=== PATIENT | male | born 1990 | race Caucasian/White ===

== ENCOUNTER 2018-05-08 19:05 | Emergency (ER) | payer OTHER ==
[~2018-05-08] VITALS: Ht 185.4 cm; Wt 70.0 kg
[2018-05-08 19:15] VITALS: BP 140/75
[2018-05-08] MEDS ORDERED: L.E.T SOLUTION TP ONE ×2 (19:39→20:00)
== END 2018-05-08 20:30 | disposition home or self-care (01) ==
LOC: ED 20:00
DX: S61.012A Laceration without foreign body of left thumb without damage to nail, initial encounter (principal); X58.XXXA Exposure to other specified factors, initial encounter; Y93.89 Activity, other specified; Y92.009 Unspecified place in unspecified non-institutional (private) residence as the place of occurrence of the external cause; Y99.8 Other external cause status
CPT/HCPCS: 12001; 99283